=== PATIENT | male | born 1985 | race Caucasian/White ===

== ENCOUNTER 2018-02-02 21:43 | Emergency (ER) | payer MEDICAID ==
[~2018-02-02] VITALS: Ht 165.1 cm; Wt 59.0 kg
[2018-02-02 23:50] LABS: BASOPHILS % (AUTO) 0.5 % (0.0-2.0); EOSINOPHILS % (AUTO) 0 % (1.0-6.0); HEMATOCRIT 43.5 % (41-53); HEMOGLOBIN 14.7 g/dL (13.5-17.5); LYMPHOCYTES # (AUTO) 1.1 K/uL (1.0-4.8); LYMPHOCYTES % (AUTO) 9.4 % (22.0-44.0); MEAN CORPUSCULAR HEMOGLOBIN 29.6 pg (26.0-34.0); MEAN CORPUSCULAR HGB CONC 33.9 G/dL (31.0-37.0); MEAN CORPUSCULAR VOLUME 88 fL (80-100); MONOCYTES # (AUTO) 0.8 K/uL (0.1-1.0); MONOCYTES % (AUTO) 6.4 % (2.0-9.0); NEUTROPHILS % (AUTO) 83.7 % (40.0-70.0); PLATELET COUNT (AUTO) 224 K/uL (150-450); RED BLOOD CELL COUNT(AUTO) 4.97 MIL/uL (4.50-5.90); RED CELL DISTRIBUTION WIDTH 13.3 % (11.5-14.5)
[2018-02-03 00:03] LABS: ANION GAP 10 mmol/L (8-16); CALCIUM, TOTAL 9.3 mg/dL (8.8-10.5); CARBON DIOXIDE 25 mmol/L (22-29); CHLORIDE 99 mmol/L (98-107); CREATININE 0.96 mg/dL (0.60-1.30); GLOMERULAR FILTR. RATE CALC > 60 mL/min (>60); GLUCOSE,RANDOM 112 mg/dL (70-110); POTASSIUM 3.6 mmol/L (3.5-5.1); SODIUM SERUM 134 mmol/L (136-145); UREA NITROGEN, BLOOD 10 mg/dL (7-18)
[2018-02-03 00:09] LABS: ALANINE AMINOTRANSFERASE 20 U/L (12-78); ALBUMIN 4.6 g/dL (3.4-5.0); ALKALINE PHOSPHATASE 84 U/L (46-116); ASPARTATE AMINOTRANSFERASE 18 U/L (15-37); BILIRUBIN,TOTAL 0.7 mg/dL (0.1-1.0); TOTAL PROTEIN, SERUM 7.9 g/dL (6.4-8.2)
[2018-02-03 07:26] VITALS: BP 112/66
== END 2018-02-03 08:15 | disposition home or self-care (01) ==
LOC: EMS 21:45
DX: F29 Unspecified psychosis not due to a substance or known physiological condition (principal)
CPT/HCPCS: 80053; 85025; 99285; G0480

== ENCOUNTER 2018-02-11 07:56 | Inpatient (IN) | payer MEDICAID ==
[~2018-02-11] VITALS: Ht 165.1 cm; Wt 52.0 kg
[2018-02-11 08:30] LABS: BASOPHILS % (AUTO) 1.2 % (0.0-2.0); EOSINOPHILS % (AUTO) 1.3 % (1.0-6.0); HEMATOCRIT 41.5 % (41-53); HEMOGLOBIN 14.3 g/dL (13.5-17.5); LYMPHOCYTES # (AUTO) 1.3 K/uL (1.0-4.8); LYMPHOCYTES % (AUTO) 20.7 % (22.0-44.0); MEAN CORPUSCULAR HEMOGLOBIN 29.9 pg (26.0-34.0); MEAN CORPUSCULAR HGB CONC 34.3 G/dL (31.0-37.0); MEAN CORPUSCULAR VOLUME 87 fL (80-100); MONOCYTES # (AUTO) 0.5 K/uL (0.1-1.0); MONOCYTES % (AUTO) 8.6 % (2.0-9.0); NEUTROPHILS # (AUTO) 4.3 K/uL (1.8-7.7); NEUTROPHILS % (AUTO) 68.2 % (40.0-70.0); PLATELET COUNT (AUTO) 246 K/uL (150-450); RED BLOOD CELL COUNT(AUTO) 4.76 MIL/uL (4.50-5.90); RED CELL DISTRIBUTION WIDTH 12.9 % (11.5-14.5)
[2018-02-11 08:38] LABS: AMPHET/METH SCREEN,URINE NEGATIVE (NEGATIVE); BARBITURATE SCREEN, URINE NEGATIVE (NEGATIVE); BENZODIAZEPINES SCREEN,URINE NEGATIVE (NEGATIVE); CANNABINOID SCREEN,URINE POSITIVE (NEGATIVE); COCAINE SCREEN,URINE NEGATIVE (NEGATIVE); METHADONE SCREEN, URINE NEGATIVE (NEGATIVE); OPIATE SCREEN,URINE NEGATIVE (NEGATIVE); PHENCYCLIDINE SCREEN,URINE NEGATIVE (NEGATIVE)
[2018-02-11 08:40] LABS: ANION GAP 11 mmol/L (8-16); CALCIUM, TOTAL 8.9 mg/dL (8.8-10.5); CARBON DIOXIDE 26 mmol/L (22-29); CHLORIDE 101 mmol/L (98-107); CREATININE 0.83 mg/dL (0.60-1.30); GLOMERULAR FILTR. RATE CALC > 60 mL/min (>60); GLUCOSE,RANDOM 96 mg/dL (70-110); SODIUM SERUM 138 mmol/L (136-145); UREA NITROGEN, BLOOD 8 mg/dL (7-18)
[2018-02-11 08:46] LABS: ALANINE AMINOTRANSFERASE 29 U/L (12-78); ALBUMIN 4.1 g/dL (3.4-5.0); ALKALINE PHOSPHATASE 74 U/L (46-116); ASPARTATE AMINOTRANSFERASE 28 U/L (15-37); BILIRUBIN,TOTAL 0.5 mg/dL (0.1-1.0); TOTAL PROTEIN, SERUM 7.2 g/dL (6.4-8.2)
[2018-02-11] MEDS ORDERED: HALOPERIDOL 5 MG TABLET PO PRN (10:30)
[2018-02-11] MEDS ORDERED: ZOLPIDEM TARTRATE 10 MG TABLET PO PRN (10:30)
[2018-02-11 14:24] VITALS: BP 121/79
[2018-02-11] MEDS ORDERED: LOPERAMIDE HCL 2 MG CAPSULE PO PRN (14:30)
[2018-02-11] MEDS ORDERED: ACETAMINOPHEN 325 MG TABLET PO PRN (14:30)
[2018-02-11] MEDS ORDERED: IBUPROFEN 400 MG TABLET PO PRN (14:30)
[2018-02-11] MEDS ORDERED: DOCUSATE SODIUM 100 MG CAPSULE PO PRN (14:30)
[2018-02-11] MEDS ORDERED: ONDANSETRON HCL 4 MG TABLET PO PRN (14:30)
[2018-02-11] MEDS ORDERED: MAG HYDROX/AL HYDROX/SIMETH ES 30 ML SUSPENSION UDCUP PO PRN (14:30)
[2018-02-11] MEDS ORDERED: CloNIDine HCL 0.1 MG TABLET PO PRN (14:30)
[2018-02-11] MEDS ORDERED: ALBUTEROL SULFATE HFA 90 MCG/PUFF 8 GM INHALER IH PRN (14:30)
[2018-02-11] MEDS ORDERED: MAGNESIUM HYDROXIDE SUSPENSION 30 ML UDCUP PO PRN (14:30)
[2018-02-11] MEDS ORDERED: PETROLATUM,WHITE 71 GM JELLY TP PRN (14:30)
[2018-02-11 16:00] VITALS: BP 128/79
[2018-02-11] MEDS: BACITRACIN 28.4 GM OINTMENT TP SCH (17:00)
[2018-02-11] MEDS: OLANZapine 5 MG TABLET PO SCH (17:00)
[2018-02-12 00:07] VITALS: BP 118/80
[2018-02-12 07:38] VITALS: BP 116/78
[2018-02-12] MEDS: NICOTINE 14 MG/24 HOUR PATCH TD SCH (08:17)
[2018-02-12] MEDS: BACITRACIN 28.4 GM OINTMENT TP SCH ×2 (08:17→16:05)
[2018-02-12] MEDS: OLANZapine 5 MG TABLET PO SCH ×2 (08:17→16:05)
[2018-02-12 08:21] LABS: BASOPHILS % (AUTO) 0.7 % (0.0-2.0); EOSINOPHILS % (AUTO) 2.7 % (1.0-6.0); HEMATOCRIT 45.7 % (41-53); HEMOGLOBIN 15.6 g/dL (13.5-17.5); LYMPHOCYTES % (AUTO) 29.6 % (22.0-44.0); MEAN CORPUSCULAR HEMOGLOBIN 30.2 pg (26.0-34.0); MEAN CORPUSCULAR HGB CONC 34.1 G/dL (31.0-37.0); MEAN CORPUSCULAR VOLUME 89 fL (80-100); MONOCYTES # (AUTO) 0.7 K/uL (0.1-1.0); MONOCYTES % (AUTO) 9.9 % (2.0-9.0); NEUTROPHILS % (AUTO) 57.1 % (40.0-70.0); PLATELET COUNT (AUTO) 288 K/uL (150-450); RED BLOOD CELL COUNT(AUTO) 5.16 MIL/uL (4.50-5.90); RED CELL DISTRIBUTION WIDTH 13.3 % (11.5-14.5)
[2018-02-12 08:46] LABS: HEMOGLOBIN A1C 5.3 % (4.5-6.2)
[2018-02-12 08:52] LABS: ALANINE AMINOTRANSFERASE 24 U/L (12-78); ALBUMIN 4.3 g/dL (3.4-5.0); ALKALINE PHOSPHATASE 77 U/L (46-116); ANION GAP 14 mmol/L (8-16); ASPARTATE AMINOTRANSFERASE 18 U/L (15-37); BILIRUBIN,TOTAL 0.6 mg/dL (0.1-1.0); CALCIUM, TOTAL 9.1 mg/dL (8.8-10.5); CARBON DIOXIDE 23 mmol/L (22-29); CHLORIDE 105 mmol/L (98-107); CHOL/HDL RATIO 2.7 (4.2-7.3); CHOLESTEROL 110 mg/dL (131-200); CREATININE 1.04 mg/dL (0.60-1.30); GLOMERULAR FILTR. RATE CALC > 60 mL/min (>60); GLUCOSE,RANDOM 106 mg/dL (70-110); HDL CHOLESTEROL 41 mg/dL (40-60); LDL CHOL (CALC.) 56 mg/dL (0-130); POTASSIUM 3.3 mmol/L (3.5-5.1); SODIUM SERUM 142 mmol/L (136-145); THYROID STIMULATING HORMONE 1.67 uIU/mL (0.36-3.74); TOTAL PROTEIN, SERUM 7.6 g/dL (6.4-8.2); TRIGLYCERIDES 67 mg/dL (15-150); UREA NITROGEN, BLOOD 13 mg/dL (7-18)
[2018-02-12 16:18] VITALS: BP 117/77
[2018-02-13 02:51] VITALS: BP 128/85
[2018-02-13] MEDS ORDERED: POTASSIUM CHLORIDE 20 MEQ ER TABLET PO ONE (07:00)
[2018-02-13 08:33] VITALS: BP 118/78
[2018-02-13] MEDS: LORazepam 2 MG TABLET PO PRN (09:11)
[2018-02-13] MEDS: NICOTINE 14 MG/24 HOUR PATCH TD SCH (09:12)
[2018-02-13] MEDS: OLANZapine 5 MG TABLET PO SCH (09:12)
[2018-02-13] MEDS: BACITRACIN 28.4 GM OINTMENT TP SCH ×2 (09:14→16:33)
[2018-02-13 16:10] VITALS: BP 107/74
[2018-02-13] MEDS: OLANZapine 10 MG TABLET PO SCH (16:32)
[2018-02-14 00:21] VITALS: BP 132/82
[2018-02-14] MEDS: LORazepam 2 MG TABLET PO PRN ×2 (01:29→16:29)
[2018-02-14 08:04] VITALS: BP 123/78
[2018-02-14] MEDS: OLANZapine 10 MG TABLET PO SCH ×2 (08:18→16:29)
[2018-02-14] MEDS: BACITRACIN 28.4 GM OINTMENT TP SCH ×2 (08:18→17:03)
[2018-02-14] MEDS: NICOTINE 14 MG/24 HOUR PATCH TD SCH (08:18)
[2018-02-14] MEDS ORDERED: DIVALPROEX SODIUM 250 MG ER TABLET PO ONE (12:30)
[2018-02-14 16:05] VITALS: BP 128/82
[2018-02-14] MEDS: DIVALPROEX SODIUM 250 MG ER TABLET PO SCH (16:29)
[2018-02-15 03:40] VITALS: BP 118/73
[2018-02-15 08:10] VITALS: BP 116/70
[2018-02-15] MEDS: BACITRACIN 28.4 GM OINTMENT TP SCH ×2 (08:41→17:00)
[2018-02-15] MEDS: OLANZapine 10 MG TABLET PO SCH ×2 (08:41→17:00)
[2018-02-15] MEDS: DIVALPROEX SODIUM 250 MG ER TABLET PO SCH (08:41)
[2018-02-15] MEDS: NICOTINE 14 MG/24 HOUR PATCH TD SCH (08:41)
[2018-02-15] MEDS ORDERED: LORazepam 2 MG/ML VIAL ONE (13:50)
[2018-02-15] MEDS ORDERED: HALOPERIDOL LACTATE 5 MG/ML VIAL ONE (13:50)
[2018-02-15] MEDS ORDERED: DiphenhydrAMINE HCL 50 MG/ML VIAL ONE (13:50)
[2018-02-15] MEDS ORDERED: DiphenhydrAMINE HCL 50 MG/ML VIAL IM ONE (14:00)
[2018-02-15] MEDS ORDERED: HALOPERIDOL LACTATE 5 MG/ML VIAL IM ONE (14:00)
[2018-02-15] MEDS ORDERED: LORazepam 2 MG/ML VIAL IM ONE (14:00)
[2018-02-15 15:05] VITALS: BP 111/70
[2018-02-15 16:00] VITALS: BP 110/71
[2018-02-15] MEDS: DIVALPROEX SODIUM 500 MG ER TABLET PO SCH (17:00)
[2018-02-16 02:48] VITALS: BP 127/76
[2018-02-16 08:21] VITALS: BP 110/69
[2018-02-16] MEDS: DIVALPROEX SODIUM 500 MG ER TABLET PO SCH ×2 (10:01→16:05)
[2018-02-16] MEDS: BACITRACIN 28.4 GM OINTMENT TP SCH ×2 (10:01→16:05)
[2018-02-16] MEDS: OLANZapine 10 MG TABLET PO SCH ×2 (10:01→16:05)
[2018-02-16] MEDS: NICOTINE 14 MG/24 HOUR PATCH TD SCH (10:01)
[2018-02-16 18:13] VITALS: BP 121/74
[2018-02-16 21:18] VITALS: BP 109/67
[2018-02-17 06:27] VITALS: BP 110/68
[2018-02-17] MEDS: DIVALPROEX SODIUM 500 MG ER TABLET PO SCH (08:09)
[2018-02-17] MEDS: OLANZapine 10 MG TABLET PO SCH (08:09)
[2018-02-17] MEDS: BACITRACIN 28.4 GM OINTMENT TP SCH (08:10)
[2018-02-17] MEDS: NICOTINE 14 MG/24 HOUR PATCH TD SCH (08:10)
[2018-02-17 08:40] LABS: BASOPHILS % (AUTO) 0.6 % (0.0-2.0); EOSINOPHILS % (AUTO) 3.3 % (1.0-6.0); HEMATOCRIT 47.5 % (41-53); LYMPHOCYTES # (AUTO) 1.6 K/uL (1.0-4.8); LYMPHOCYTES % (AUTO) 23.5 % (22.0-44.0); MEAN CORPUSCULAR HGB CONC 33.8 G/dL (31.0-37.0); MEAN CORPUSCULAR VOLUME 89 fL (80-100); MONOCYTES # (AUTO) 0.8 K/uL (0.1-1.0); MONOCYTES % (AUTO) 11.2 % (2.0-9.0); NEUTROPHILS # (AUTO) 4.3 K/uL (1.8-7.7); NEUTROPHILS % (AUTO) 61.4 % (40.0-70.0); PLATELET COUNT (AUTO) 292 K/uL (150-450); RED BLOOD CELL COUNT(AUTO) 5.34 MIL/uL (4.50-5.90)
[2018-02-17 08:57] LABS: ALANINE AMINOTRANSFERASE 22 U/L (12-78); ALKALINE PHOSPHATASE 80 U/L (46-116); ANION GAP 10 mmol/L (8-16); ASPARTATE AMINOTRANSFERASE 32 U/L (15-37); BILIRUBIN,TOTAL 0.6 mg/dL (0.1-1.0); CALCIUM, TOTAL 9.3 mg/dL (8.8-10.5); CARBON DIOXIDE 27 mmol/L (22-29); CHLORIDE 102 mmol/L (98-107); CREATININE 0.83 mg/dL (0.60-1.30); GLOMERULAR FILTR. RATE CALC > 60 mL/min (>60); GLUCOSE,RANDOM 70 mg/dL (70-110); POTASSIUM 4.4 mmol/L (3.5-5.1); SODIUM SERUM 139 mmol/L (136-145); TOTAL PROTEIN, SERUM 7.4 g/dL (6.4-8.2); UREA NITROGEN, BLOOD 15 mg/dL (7-18); VALPROIC ACID 60 mcg/mL (50-100)
[2018-02-17 08:59] VITALS: BP 110/75
[2018-02-17] MEDS ORDERED: DIVA250T4 PO (09:36)
[2018-02-17] MEDS ORDERED: OLAN10TA3 PO (09:37)
== END 2018-02-17 12:40 | disposition home or self-care (01) | DRG 753 ==
LOC: EMS 07:56 → B3A 12:19 → B2S 02-16 08:09
PROVIDERS: ADMIT Psychiatry & Neurology Psychiatry; ATTEND Psychiatry & Neurology Psychiatry
DX: F31.2 Bipolar disorder, current episode manic severe with psychotic features (principal); Z91.19 Patient's noncompliance with other medical treatment and regimen; R62.7 Adult failure to thrive; E87.6 Hypokalemia; F10.10 Alcohol abuse, uncomplicated; F12.90 Cannabis use, unspecified, uncomplicated; F41.9 Anxiety disorder, unspecified
CPT/HCPCS: 83036; 84132; 84443; 99285; G0480; J1200; J1630; J2060; Q0162

== ENCOUNTER 2018-09-22 00:31 | Inpatient (IN) | payer MEDICAID ==
[~2018-09-22] VITALS: Ht 165.1 cm; Wt 54.0 kg
[~2018-09-22 00:31] MED LIST: DIVA250T4 PO; OLAN10TA3 PO
[2018-09-22] MEDS ORDERED: HALOPERIDOL LACTATE 5 MG/ML VIAL IM ONE (01:15)
[2018-09-22] MEDS ORDERED: LORazepam 2 MG/ML VIAL IM ONE (01:15)
[2018-09-22] MEDS ORDERED: DiphenhydrAMINE HCL 50 MG/ML VIAL IM ONE (01:15)
[2018-09-22 01:46] LABS: BASOPHILS % (AUTO) 0.6 % (0.0-2.0); EOSINOPHILS % (AUTO) 0 % (1.0-6.0); HEMATOCRIT 43.4 % (41-53); HEMOGLOBIN 14.3 g/dL (13.5-17.5); LYMPHOCYTES # (AUTO) 0.9 K/uL (1.0-4.8); LYMPHOCYTES % (AUTO) 7.9 % (22.0-44.0); MEAN CORPUSCULAR HEMOGLOBIN 28.5 pg (26.0-34.0); MEAN CORPUSCULAR VOLUME 86 fL (80-100); MONOCYTES # (AUTO) 0.9 K/uL (0.1-1.0); MONOCYTES % (AUTO) 7.7 % (2.0-9.0); NEUTROPHILS # (AUTO) 9.9 K/uL (1.8-7.7); NEUTROPHILS % (AUTO) 83.8 % (40.0-70.0); PLATELET COUNT (AUTO) 272 K/uL (150-450); RED BLOOD CELL COUNT(AUTO) 5.03 MIL/uL (4.50-5.90); RED CELL DISTRIBUTION WIDTH 13.3 % (11.5-14.5)
[2018-09-22 01:49] LABS: ANION GAP 12 mmol/L (8-16); CALCIUM, TOTAL 9.6 mg/dL (8.8-10.5); CARBON DIOXIDE 25 mmol/L (22-29); CHLORIDE 103 mmol/L (98-107); GLOMERULAR FILTR. RATE CALC > 60 mL/min (>60); GLUCOSE,RANDOM 107 mg/dL (70-110); POTASSIUM 4.1 mmol/L (3.5-5.1); SODIUM SERUM 140 mmol/L (136-145); UREA NITROGEN, BLOOD 14 mg/dL (7-18)
[2018-09-22 01:54] LABS: ALANINE AMINOTRANSFERASE 19 U/L (12-78); ALBUMIN 4.1 g/dL (3.4-5.0); ALKALINE PHOSPHATASE 81 U/L (46-116); ASPARTATE AMINOTRANSFERASE 23 U/L (15-37); BILIRUBIN,TOTAL 0.6 mg/dL (0.1-1.0); TOTAL PROTEIN, SERUM 7.6 g/dL (6.4-8.2)
[2018-09-22 02:09] LABS: VALPROIC ACID < 3 mcg/mL (50-100)
[2018-09-22 16:27] VITALS: BP 111/66
[2018-09-22] MEDS: ZOLPIDEM TARTRATE 10 MG TABLET PO PRN (22:07)
[2018-09-23 01:59] VITALS: BP 124/78
[2018-09-23] MEDS: HALOPERIDOL 5 MG TABLET PO PRN (03:00)
[2018-09-23] MEDS: LORazepam 2 MG TABLET PO PRN (03:00)
[2018-09-23] MEDS ORDERED: CloNIDine HCL 0.1 MG TABLET PO PRN (07:15)
[2018-09-23] MEDS ORDERED: IBUPROFEN 600 MG TABLET PO PRN (07:15)
[2018-09-23] MEDS ORDERED: LOPERAMIDE HCL 2 MG CAPSULE PO PRN (07:15)
[2018-09-23] MEDS ORDERED: MAGNESIUM HYDROXIDE SUSPENSION 30 ML UDCUP PO PRN (07:15)
[2018-09-23] MEDS ORDERED: MAG HYDROX/AL HYDROX/SIMETH ES 30 ML SUSPENSION UDCUP PO PRN (07:15)
[2018-09-23] MEDS ORDERED: PETROLATUM,WHITE 71 GM JELLY TP PRN (07:15)
[2018-09-23] MEDS ORDERED: ALBUTEROL SULFATE HFA 90 MCG/PUFF 8 GM INHALER IH PRN (07:15)
[2018-09-23] MEDS ORDERED: BENZOCAINE/MENTHOL LOZENGE MM PRN (07:15)
[2018-09-23] MEDS ORDERED: ACETAMINOPHEN 325 MG TABLET PO PRN (07:15)
[2018-09-23] MEDS ORDERED: ONDANSETRON HCL 4 MG TABLET PO PRN (07:15)
[2018-09-23] MEDS ORDERED: BACITRACIN 28.4 GM OINTMENT TP PRN (07:15)
[2018-09-23 08:42] VITALS: BP 120/70
[2018-09-23] MEDS: DOCUSATE SODIUM 100 MG CAPSULE PO SCH (09:08)
[2018-09-23] MEDS: OMEPRAZOLE 20 MG CAPSULE PO SCH (09:08)
[2018-09-23] MEDS: DIVALPROEX SODIUM 500 MG DR TABLET PO SCH ×2 (09:50→21:01)
[2018-09-23] MEDS: OLANZapine 10 MG TABLET PO SCH ×2 (09:50→21:01)
[2018-09-23 16:09] VITALS: BP 107/65
[2018-09-23] MEDS: ZOLPIDEM TARTRATE 10 MG TABLET PO PRN (21:01)
[2018-09-24 01:45] VITALS: BP 124/74
[2018-09-24 08:16] VITALS: BP 101/63
[2018-09-24 08:32] LABS: BAND NEUTROPHILS % (MANUAL) 0 % (0-5)
[2018-09-24 08:38] LABS: HEMATOCRIT 43.4 % (41-53); HEMOGLOBIN 14.5 g/dL (13.5-17.5); MEAN CORPUSCULAR HEMOGLOBIN 29.5 pg (26.0-34.0); MEAN CORPUSCULAR HGB CONC 33.5 G/dL (31.0-37.0); MEAN CORPUSCULAR VOLUME 88 fL (80-100); PLATELET COUNT (AUTO) 250 K/uL (150-450); RED BLOOD CELL COUNT(AUTO) 4.92 MIL/uL (4.50-5.90); RED CELL DISTRIBUTION WIDTH 12.9 % (11.5-14.5)
[2018-09-24] MEDS: OLANZapine 10 MG TABLET PO SCH ×2 (08:54→20:20)
[2018-09-24] MEDS: DOCUSATE SODIUM 100 MG CAPSULE PO SCH (08:54)
[2018-09-24] MEDS: DIVALPROEX SODIUM 500 MG DR TABLET PO SCH ×2 (08:54→20:20)
[2018-09-24] MEDS: OMEPRAZOLE 20 MG CAPSULE PO SCH (08:54)
[2018-09-24 08:56] LABS: ANION GAP 7 mmol/L (8-16); CARBON DIOXIDE 28 mmol/L (22-29); CHLORIDE 104 mmol/L (98-107); CREATININE 0.74 mg/dL (0.60-1.30); GLOMERULAR FILTR. RATE CALC > 60 mL/min (>60); GLUCOSE,RANDOM 75 mg/dL (70-110); PHOSPHORUS 3.7 mg/dL (2.5-4.9); SODIUM SERUM 139 mmol/L (136-145); UREA NITROGEN, BLOOD 12 mg/dL (7-18)
[2018-09-24 09:36] LABS: BASOPHILS % (MANUAL) 1 % (0-2); EOSINOPHILS % (MANUAL) 4 % (1-6); LYMPHOCYTES % (MANUAL) 36 % (22-44); MONOCYTES % (MANUAL) 7 % (2-9); SEGMENTED NEUTROPHILS % 52 % (40-70)
[2018-09-24 16:20] VITALS: BP 110/78
[2018-09-24] MEDS: LORazepam 2 MG TABLET PO PRN (16:22)
[2018-09-24] MEDS: HALOPERIDOL 5 MG TABLET PO PRN (16:22)
[2018-09-24] MEDS: ZOLPIDEM TARTRATE 10 MG TABLET PO PRN (20:20)
[2018-09-25 05:44] VITALS: BP 128/76
[2018-09-25 08:14] VITALS: BP 107/63
[2018-09-25] MEDS: OLANZapine 10 MG TABLET PO SCH ×2 (08:46→21:03)
[2018-09-25] MEDS: DOCUSATE SODIUM 100 MG CAPSULE PO SCH (08:46)
[2018-09-25] MEDS: OMEPRAZOLE 20 MG CAPSULE PO SCH (08:46)
[2018-09-25] MEDS: DIVALPROEX SODIUM 500 MG DR TABLET PO SCH ×2 (08:46→21:03)
[2018-09-25 16:13] VITALS: BP 126/62
[2018-09-25] MEDS: HALOPERIDOL 5 MG TABLET PO PRN (16:34)
[2018-09-25] MEDS: LORazepam 2 MG TABLET PO PRN (16:34)
[2018-09-25] MEDS: ZOLPIDEM TARTRATE 10 MG TABLET PO PRN (21:03)
[2018-09-26 04:20] VITALS: BP 111/66
[2018-09-26] MEDS: OMEPRAZOLE 20 MG CAPSULE PO SCH (08:57)
[2018-09-26] MEDS: DIVALPROEX SODIUM 500 MG DR TABLET PO SCH ×2 (08:57→20:33)
[2018-09-26] MEDS: OLANZapine 10 MG TABLET PO SCH ×2 (08:57→20:33)
[2018-09-26] MEDS: DOCUSATE SODIUM 100 MG CAPSULE PO SCH (08:57)
[2018-09-26 09:10] VITALS: BP 113/75
[2018-09-26 16:13] VITALS: BP 108/67
[2018-09-26] MEDS: ZOLPIDEM TARTRATE 10 MG TABLET PO PRN (20:33)
[2018-09-27] MEDS: LORazepam 2 MG TABLET PO PRN (01:51)
[2018-09-27 01:57] VITALS: BP 119/75
[2018-09-27 08:09] VITALS: BP 111/66
[2018-09-27] MEDS: OLANZapine 10 MG TABLET PO SCH ×2 (09:03→20:40)
[2018-09-27] MEDS: DOCUSATE SODIUM 100 MG CAPSULE PO SCH (09:03)
[2018-09-27] MEDS: DIVALPROEX SODIUM 500 MG DR TABLET PO SCH ×2 (09:03→20:40)
[2018-09-27] MEDS: OMEPRAZOLE 20 MG CAPSULE PO SCH (09:03)
[2018-09-27 16:00] VITALS: BP 105/71
[2018-09-27] MEDS: ZOLPIDEM TARTRATE 10 MG TABLET PO PRN (20:40)
[2018-09-28 00:48] VITALS: BP 118/66
[2018-09-28 08:34] VITALS: BP 117/69
[2018-09-28] MEDS: LORazepam 2 MG TABLET PO PRN (08:42)
[2018-09-28] MEDS: OLANZapine 10 MG TABLET PO SCH (08:42)
[2018-09-28] MEDS: DOCUSATE SODIUM 100 MG CAPSULE PO SCH (08:42)
[2018-09-28] MEDS: DIVALPROEX SODIUM 500 MG DR TABLET PO SCH (08:42)
[2018-09-28] MEDS: OMEPRAZOLE 20 MG CAPSULE PO SCH (08:42)
[2018-09-28] MEDS ORDERED: DIVA-78 PO (13:41)
[2018-09-28] MEDS ORDERED: OLAN10TA3 PO (13:42)
== END 2018-09-28 13:20 | disposition home or self-care (01) | DRG 750 ==
LOC: EMS 00:32 → B3A 12:56
PROVIDERS: ADMIT Psychiatry & Neurology Psychiatry; ATTEND Psychiatry & Neurology Psychiatry
DX: F25.0 Schizoaffective disorder, bipolar type (principal); D72.829 Elevated white blood cell count, unspecified; F12.90 Cannabis use, unspecified, uncomplicated; G47.00 Insomnia, unspecified; K59.00 Constipation, unspecified; Z79.899 Other long term (current) drug therapy; Z68.1 Body mass index [BMI] 19.9 or less, adult
CPT/HCPCS: 83735; 84100; 85007; 96372; G0480; J1200; J1630; J2060

== ENCOUNTER 2019-04-17 10:59 | Emergency (ER) | payer MEDICAID ==
[~2019-04-17] VITALS: Ht 167.6 cm; Wt 59.1 kg
[~2019-04-17 10:59] MED LIST changes: +DIVA-78 PO; -DIVA250T4 PO
[2019-04-17 12:05] LABS: ANION GAP 15 mmol/L (8-16); CALCIUM, TOTAL 9.5 mg/dL (8.8-10.5); CARBON DIOXIDE 25 mmol/L (22-29); CHLORIDE 102 mmol/L (98-107); CREATININE 1.29 mg/dL (0.60-1.30); GLOMERULAR FILTR. RATE CALC > 60 mL/min (>60); GLUCOSE,RANDOM 88 mg/dL (70-110); POTASSIUM 3.9 mmol/L (3.5-5.1); SODIUM SERUM 142 mmol/L (136-145); UREA NITROGEN, BLOOD 21 mg/dL (7-18)
[2019-04-17 13:21] VITALS: BP 115/75
== END 2019-04-17 13:22 | disposition home or self-care (01) ==
LOC: EMS 11:01
DX: G40.909 Epilepsy, unspecified, not intractable, without status epilepticus (principal); F12.90 Cannabis use, unspecified, uncomplicated; F14.90 Cocaine use, unspecified, uncomplicated; F15.90 Other stimulant use, unspecified, uncomplicated; Z79.899 Other long term (current) drug therapy
CPT/HCPCS: 70450

== ENCOUNTER 2019-04-17 15:51 | Inpatient (IN) | payer MEDICAID ==
[~2019-04-17] VITALS: Ht 167.6 cm; Wt 53.0 kg
[2019-04-17 18:24] LABS: BASOPHILS % (AUTO) 0.4 % (0.0-2.0); EOSINOPHILS % (AUTO) 0 % (1.0-6.0); HEMATOCRIT 45.4 % (41-53); HEMOGLOBIN 15.3 g/dL (13.5-17.5); LYMPHOCYTES # (AUTO) 0.6 K/uL (1.0-4.8); LYMPHOCYTES % (AUTO) 3.2 % (22.0-44.0); MEAN CORPUSCULAR HEMOGLOBIN 29.7 pg (26.0-34.0); MEAN CORPUSCULAR HGB CONC 33.6 G/dL (31.0-37.0); MEAN CORPUSCULAR VOLUME 88 fL (80-100); MONOCYTES # (AUTO) 1.1 K/uL (0.1-1.0); MONOCYTES % (AUTO) 6.2 % (2.0-9.0); NEUTROPHILS # (AUTO) 16.3 K/uL (1.8-7.7); PLATELET COUNT (AUTO) 234 K/uL (150-450); RED BLOOD CELL COUNT(AUTO) 5.14 MIL/uL (4.50-5.90)
[2019-04-17 18:31] LABS: NEUTROPHILS % (AUTO) 90.2 % (40.0-70.0)
[2019-04-17 18:32] LABS: ANION GAP 15 mmol/L (8-16); CARBON DIOXIDE 24 mmol/L (22-29); CHLORIDE 98 mmol/L (98-107); GLUCOSE,RANDOM 91 mg/dL (70-110); POTASSIUM 3.8 mmol/L (3.5-5.1); SALICYLATE < 2.8 mg/dL (2.8-20.0); SODIUM SERUM 137 mmol/L (136-145); UREA NITROGEN, BLOOD 22 mg/dL (7-18)
[2019-04-17 18:33] LABS: GLOMERULAR FILTR. RATE CALC > 60 mL/min (>60)
[2019-04-17 18:39] LABS: ALANINE AMINOTRANSFERASE 34 U/L (12-78); ALBUMIN 4.7 g/dL (3.4-5.0); ALKALINE PHOSPHATASE 69 U/L (46-116); ASPARTATE AMINOTRANSFERASE 106 U/L (15-37); BILIRUBIN,TOTAL 1.6 mg/dL (0.1-1.0); TOTAL PROTEIN, SERUM 8.2 g/dL (6.4-8.2)
[2019-04-17] MEDS ORDERED: SODIUM CHLORIDE 0.9% 1,000 ML IV ONE (18:45)
[2019-04-17 18:59] LABS: ACETAMINOPHEN < 2 mcg/mL (10-30)
[2019-04-17 20:17] LABS: BASOPHILS % (AUTO) 0.2 % (0.0-2.0); EOSINOPHILS % (AUTO) 0 % (1.0-6.0); HEMATOCRIT 40.8 % (41-53); HEMOGLOBIN 13.5 g/dL (13.5-17.5); LYMPHOCYTES # (AUTO) 0.7 K/uL (1.0-4.8); LYMPHOCYTES % (AUTO) 4.5 % (22.0-44.0); MEAN CORPUSCULAR HEMOGLOBIN 29.1 pg (26.0-34.0); MEAN CORPUSCULAR HGB CONC 33.1 G/dL (31.0-37.0); MEAN CORPUSCULAR VOLUME 88 fL (80-100); MONOCYTES # (AUTO) 1.1 K/uL (0.1-1.0); MONOCYTES % (AUTO) 7.2 % (2.0-9.0); NEUTROPHILS % (AUTO) 88.1 % (40.0-70.0); PLATELET COUNT (AUTO) 183 K/uL (150-450); RED BLOOD CELL COUNT(AUTO) 4.63 MIL/uL (4.50-5.90)
[2019-04-17 22:24] LABS: APPEARANCE,URINE CLEAR (CLEAR); GLUCOSE, URINE (UA) NEGATIVE (NEGATIVE); KETONES,URINE 15 mg/dL (NEGATIVE); LEUKOCYTE ESTERASE ,URINE NEGATIVE (NEGATIVE); NITRATE,URINE NEGATIVE (NEGATIVE); OCCULT BLOOD,URINE TRACE (NEGATIVE); PH,URINE 5.5 (5.0-8.0); PROTEIN,URINE POS 1+ (NEGATIVE); UROBILINOGEN,URINE 0.2 mg/dL (<=1.0)
[2019-04-17 22:25] LABS: BILIRUBIN,URINE PRELIM. POSITIVE (NEGATIVE)
[2019-04-17 22:31] LABS: AMPHET/METH SCREEN,URINE NEGATIVE (NEGATIVE); BARBITURATE SCREEN, URINE NEGATIVE (NEGATIVE); BENZODIAZEPINES SCREEN,URINE POSITIVE (NEGATIVE); CANNABINOID SCREEN,URINE POSITIVE (NEGATIVE); COCAINE SCREEN,URINE NEGATIVE (NEGATIVE); METHADONE SCREEN, URINE NEGATIVE (NEGATIVE); OPIATE SCREEN,URINE NEGATIVE (NEGATIVE)
[2019-04-17 22:32] LABS: PHENCYCLIDINE SCREEN,URINE NEGATIVE (NEGATIVE)
[2019-04-17 22:34] LABS: BACTERIA,URINE None Seen /HPF (None Seen); RBC,URINE 0-2 /HPF (0-2); SQUAMOUS EPITHELIAL CELL,UR Rare /LPF (None Seen); WBC,URINE 0-2 /HPF (0-5)
[2019-04-17] MEDS ORDERED: ZOLPIDEM TARTRATE 10 MG TABLET PO PRN (23:15)
[2019-04-18 01:36] VITALS: BP 112/60
[2019-04-18] MEDS: OLANZapine 5 MG RAPDIS TABLET PO PRN (02:52)
[2019-04-18] MEDS: LORazepam 2 MG TABLET PO PRN (02:52)
[2019-04-18] MEDS ORDERED: INFLUENZA VIRUS VACCINE QVS 2019-20 (3YR+)/PF 60 MCG/0.5 ML SYRINGE IM ONE (03:45)
[2019-04-18] MEDS ORDERED: DiphenhydrAMINE HCL 50 MG/ML VIAL IM ONE ×2 (09:05→21:45)
[2019-04-18] MEDS ORDERED: LORazepam 2 MG/ML VIAL IM ONE ×2 (09:05→21:45)
[2019-04-18] MEDS ORDERED: HALOPERIDOL LACTATE 5 MG/ML VIAL IM ONE ×2 (09:05→21:45)
[2019-04-18] MEDS ORDERED: GuaiFENesin/D-METHORPHAN [SUGAR-FREE] 200-20MG/10 ML SYRUP UDCUP PO PRN (12:15)
[2019-04-18] MEDS ORDERED: MAGNESIUM HYDROXIDE SUSPENSION 30 ML UDCUP PO PRN (12:15)
[2019-04-18] MEDS ORDERED: ACETAMINOPHEN 325 MG TABLET PO PRN (12:15)
[2019-04-18] MEDS ORDERED: HydrOXYzine PAMOATE 50 MG CAPSULE PO PRN (12:15)
[2019-04-18] MEDS ORDERED: PROMETHAZINE HCL 25 MG TABLET PO PRN (12:15)
[2019-04-18] MEDS ORDERED: MAG HYDROX/AL HYDROX/SIMETH ES 30 ML SUSPENSION UDCUP PO PRN (12:15)
[2019-04-18] MEDS ORDERED: TUBERCULIN, PURIFIED PROTEIN DERIVATIVE 5 TU/0.1 ML SYRINGE ID ONE (12:15)
[2019-04-18] MEDS ORDERED: LOPERAMIDE HCL 2 MG CAPSULE PO PRN (12:15)
[2019-04-18] MEDS: THIAMINE HCL 100 MG TABLET PO SCH (16:55)
[2019-04-18] MEDS ORDERED: IBUPROFEN 600 MG TABLET PO PRN (19:15)
[2019-04-18] MEDS ORDERED: CloNIDine HCL 0.1 MG TABLET PO PRN (19:15)
[2019-04-18] MEDS ORDERED: ONDANSETRON HCL 4 MG TABLET PO PRN (19:15)
[2019-04-18] MEDS ORDERED: BENZOCAINE/MENTHOL LOZENGE MM PRN (19:15)
[2019-04-18] MEDS ORDERED: ALBUTEROL SULFATE HFA 90 MCG/PUFF 8 GM INHALER IH PRN (19:15)
[2019-04-18] MEDS ORDERED: PETROLATUM,WHITE 28 GM JELLY TP PRN (19:15)
[2019-04-18] MEDS ORDERED: BACITRACIN 28.4 GM OINTMENT TP PRN (19:15)
[2019-04-18] MEDS: DIVALPROEX SODIUM 500 MG ER TABLET PO SCH (20:24)
[2019-04-18] MEDS ORDERED: OLANZapine 5 MG TABLET PO SCH (21:00)
[2019-04-18] MEDS ORDERED: LORazepam 2 MG/ML VIAL ONE (21:41)
[2019-04-18 23:22] VITALS: BP 120/73
[2019-04-19] MEDS: MULTIVITAMINS WITH MINERALS, THERAPEUTIC TABLET PO SCH (07:58)
[2019-04-19] MEDS: THIAMINE HCL 100 MG TABLET PO SCH ×2 (07:58→18:00)
[2019-04-19] MEDS: LORazepam 2 MG TABLET PO PRN ×2 (07:58→17:00)
[2019-04-19] MEDS: NALTREXONE HCL 50 MG TABLET PO SCH (07:58)
[2019-04-19] MEDS: FOLIC ACID 1 MG TABLET PO SCH (07:58)
[2019-04-19] MEDS: OLANZapine 5 MG RAPDIS TABLET PO PRN (08:01)
[2019-04-19 08:40] VITALS: BP 107/66
[2019-04-19 20:04] VITALS: BP 111/68
[2019-04-19] MEDS: DIVALPROEX SODIUM 500 MG ER TABLET PO SCH (20:49)
[2019-04-19] MEDS ORDERED: OLANZapine 10 MG TABLET PO SCH (21:00)
[2019-04-20 06:26] LABS: HEMOGLOBIN A1C 5.1 % (4.5-6.2)
[2019-04-20 06:38] LABS: ANION GAP 7 mmol/L (8-16); CALCIUM, TOTAL 8.9 mg/dL (8.8-10.5); CARBON DIOXIDE 31 mmol/L (22-29); CHLORIDE 101 mmol/L (98-107); CHOL/HDL RATIO 2.9 (4.2-7.3); CHOLESTEROL 112 mg/dL (131-200); CREATININE 0.84 mg/dL (0.60-1.30); FREE T4 (FREE THYROXINE) 1.83 ng/dL (0.76-1.46); GLOMERULAR FILTR. RATE CALC > 60 mL/min (>60); GLUCOSE,RANDOM 86 mg/dL (70-110); HDL CHOLESTEROL 38 mg/dL (40-60); LDL CHOL (CALC.) 60 mg/dL (0-130); PHOSPHORUS 3.9 mg/dL (2.5-4.9); POTASSIUM 3.9 mmol/L (3.5-5.1); SODIUM SERUM 139 mmol/L (136-145); THYROID STIMULATING HORMONE 2.26 uIU/mL (0.36-3.74); TRIGLYCERIDES 71 mg/dL (15-150); UREA NITROGEN, BLOOD 8 mg/dL (7-18); VALPROIC ACID 73 mcg/mL (50-100)
[2019-04-20 08:10] VITALS: BP 116/80
[2019-04-20] MEDS: NALTREXONE HCL 50 MG TABLET PO SCH (10:00)
[2019-04-20] MEDS: THIAMINE HCL 100 MG TABLET PO SCH ×2 (10:00→16:21)
[2019-04-20] MEDS: FOLIC ACID 1 MG TABLET PO SCH (10:00)
[2019-04-20] MEDS: MULTIVITAMINS WITH MINERALS, THERAPEUTIC TABLET PO SCH (10:00)
[2019-04-20 16:55] VITALS: BP 105/69
[2019-04-20] MEDS ORDERED: DIVA500T52 PO (17:41)
[2019-04-20] MEDS ORDERED: NALT50TA PO (17:41)
[2019-04-20] MEDS ORDERED: OLAN10TA20 PO (17:41)
== END 2019-04-20 19:00 | disposition home or self-care (01) | DRG 750 ==
LOC: EMS 15:52 → 3EC 04-18 00:13
PROVIDERS: ADMIT Psychiatry & Neurology Psychiatry; ATTEND Psychiatry & Neurology Psychiatry
DX: F25.0 Schizoaffective disorder, bipolar type (principal); Z78.1 Physical restraint status; Z59.0 Homelessness; D72.829 Elevated white blood cell count, unspecified; F12.90 Cannabis use, unspecified, uncomplicated; F14.90 Cocaine use, unspecified, uncomplicated; F17.210 Nicotine dependence, cigarettes, uncomplicated; G47.00 Insomnia, unspecified; K59.00 Constipation, unspecified; Z91.19 Patient's noncompliance with other medical treatment and regimen; Z53.20 Procedure and treatment not carried out because of patient's decision for unspecified reasons
CPT/HCPCS: 83036; 83735; 84100; 84439; 84443; 96372; G0480; G0481; J1200; J1630; J2060; J7030

== ENCOUNTER 2019-04-25 12:01 | Inpatient (IN) | payer MEDICAID ==
[~2019-04-25] VITALS: Ht 167.6 cm; Wt 52.6 kg
[~2019-04-25 12:01] MED LIST changes: -DIVA-78 PO; +DIVA500T52 PO; +NALT50TA PO; +OLAN10TA20 PO; -OLAN10TA3 PO
[2019-04-25 12:35] LABS: BASOPHILS % (AUTO) 0.5 % (0.0-2.0); EOSINOPHILS % (AUTO) 0.1 % (1.0-6.0); HEMATOCRIT 44.4 % (41-53); HEMOGLOBIN 15.1 g/dL (13.5-17.5); LYMPHOCYTES # (AUTO) 1.1 K/uL (1.0-4.8); LYMPHOCYTES % (AUTO) 11.2 % (22.0-44.0); MEAN CORPUSCULAR HEMOGLOBIN 29.6 pg (26.0-34.0); MEAN CORPUSCULAR HGB CONC 33.9 G/dL (31.0-37.0); MEAN CORPUSCULAR VOLUME 87 fL (80-100); MONOCYTES # (AUTO) 1.1 K/uL (0.1-1.0); MONOCYTES % (AUTO) 10.9 % (2.0-9.0); NEUTROPHILS # (AUTO) 7.6 K/uL (1.8-7.7); NEUTROPHILS % (AUTO) 77.3 % (40.0-70.0); PLATELET COUNT (AUTO) 274 K/uL (150-450); RED BLOOD CELL COUNT(AUTO) 5.09 MIL/uL (4.50-5.90); RED CELL DISTRIBUTION WIDTH 12.8 % (11.5-14.5)
[2019-04-25] MEDS ORDERED: HALOPERIDOL LACTATE 5 MG/ML VIAL IM ONE (12:45)
[2019-04-25] MEDS ORDERED: MAG HYDROX/AL HYDROX/SIMETH ES 30 ML SUSPENSION UDCUP PO PRN (12:45)
[2019-04-25] MEDS ORDERED: LORazepam 2 MG/ML VIAL IM ONE (12:45)
[2019-04-25] MEDS ORDERED: DiphenhydrAMINE HCL 50 MG/ML VIAL IM ONE (12:45)
[2019-04-25] MEDS ORDERED: GuaiFENesin/D-METHORPHAN [SUGAR-FREE] 200-20MG/10 ML SYRUP UDCUP PO PRN (12:45)
[2019-04-25] MEDS ORDERED: ACETAMINOPHEN 325 MG TABLET PO PRN (12:45)
[2019-04-25] MEDS ORDERED: PROMETHAZINE HCL 25 MG TABLET PO PRN (12:45)
[2019-04-25] MEDS ORDERED: HydrOXYzine PAMOATE 50 MG CAPSULE PO PRN (12:45)
[2019-04-25] MEDS ORDERED: MAGNESIUM HYDROXIDE SUSPENSION 30 ML UDCUP PO PRN (12:45)
[2019-04-25] MEDS ORDERED: LOPERAMIDE HCL 2 MG CAPSULE PO PRN (12:45)
[2019-04-25 12:46] LABS: ANION GAP 11 mmol/L (8-16); CALCIUM, TOTAL 8.9 mg/dL (8.8-10.5); CARBON DIOXIDE 27 mmol/L (22-29); CHLORIDE 102 mmol/L (98-107); CREATININE 0.99 mg/dL (0.60-1.30); GLOMERULAR FILTR. RATE CALC > 60 mL/min (>60); GLUCOSE,RANDOM 87 mg/dL (70-110); POTASSIUM 3.3 mmol/L (3.5-5.1); SODIUM SERUM 140 mmol/L (136-145); UREA NITROGEN, BLOOD 13 mg/dL (7-18)
[2019-04-25 12:53] LABS: ALANINE AMINOTRANSFERASE 27 U/L (12-78); ALBUMIN 3.9 g/dL (3.4-5.0); ALKALINE PHOSPHATASE 61 U/L (46-116); ASPARTATE AMINOTRANSFERASE 27 U/L (15-37); BILIRUBIN,TOTAL 0.6 mg/dL (0.1-1.0); TOTAL PROTEIN, SERUM 7.4 g/dL (6.4-8.2)
[2019-04-25] MEDS ORDERED: PALIPERIDONE PALMITATE 234 MG/1.5 ML SYRINGE IM ONE (17:00)
[2019-04-25 17:17] VITALS: BP 137/83
[2019-04-25] MEDS: THIAMINE HCL 100 MG TABLET PO SCH (19:43)
[2019-04-25 20:54] VITALS: BP 127/87
[2019-04-25] MEDS ORDERED: INFLUENZA VIRUS VACCINE QVS 2019-20 (3YR+)/PF 60 MCG/0.5 ML SYRINGE IM ONE (21:15)
[2019-04-25] MEDS: PALIPERIDONE 3 MG ER TABLET PO SCH (22:46)
[2019-04-26] MEDS: ZOLPIDEM TARTRATE 10 MG TABLET PO PRN (00:11)
[2019-04-26] MEDS: LORazepam 2 MG TABLET PO PRN ×2 (00:11→20:05)
[2019-04-26 08:10] VITALS: BP 114/80
[2019-04-26] MEDS: MULTIVITAMINS WITH MINERALS, THERAPEUTIC TABLET PO SCH (08:32)
[2019-04-26] MEDS: FOLIC ACID 1 MG TABLET PO SCH (08:32)
[2019-04-26] MEDS: THIAMINE HCL 100 MG TABLET PO SCH ×2 (08:32→16:14)
[2019-04-26] MEDS: NALTREXONE HCL 50 MG TABLET PO SCH (08:32)
[2019-04-26 09:42] VITALS: BP 103/54
[2019-04-26] MEDS ORDERED: POTASSIUM CHLORIDE 20 MEQ ER TABLET PO ONE (10:15)
[2019-04-26 11:12] LABS: APPEARANCE,URINE CLEAR (CLEAR); GLUCOSE, URINE (UA) NEGATIVE (NEGATIVE); KETONES,URINE TRACE mg/dL (NEGATIVE); LEUKOCYTE ESTERASE ,URINE NEGATIVE (NEGATIVE); NITRATE,URINE NEGATIVE (NEGATIVE); OCCULT BLOOD,URINE NEGATIVE (NEGATIVE); PH,URINE 5.5 (5.0-8.0); PROTEIN,URINE TRACE (NEGATIVE)
[2019-04-26 11:14] LABS: BILIRUBIN,URINE PRELIM. POSITIVE (NEGATIVE)
[2019-04-26 11:21] LABS: AMPHET/METH SCREEN,URINE NEGATIVE (NEGATIVE); BARBITURATE SCREEN, URINE NEGATIVE (NEGATIVE); BENZODIAZEPINES SCREEN,URINE NEGATIVE (NEGATIVE); CANNABINOID SCREEN,URINE POSITIVE (NEGATIVE); COCAINE SCREEN,URINE NEGATIVE (NEGATIVE); METHADONE SCREEN, URINE NEGATIVE (NEGATIVE); OPIATE SCREEN,URINE NEGATIVE (NEGATIVE); PHENCYCLIDINE SCREEN,URINE NEGATIVE (NEGATIVE)
[2019-04-26 11:25] LABS: BACTERIA,URINE None Seen /HPF (None Seen); MUCUS,URINE Few LPF (None Seen); RBC,URINE None Seen /HPF (0-2); SQUAMOUS EPITHELIAL CELL,UR Few /LPF (None Seen); WBC,URINE 0-2 /HPF (0-5)
[2019-04-26] MEDS: PALIPERIDONE 1.5 MG ER TABLET PO PRN (16:14)
[2019-04-26 18:44] VITALS: BP 113/72
[2019-04-26] MEDS: PALIPERIDONE 3 MG ER TABLET PO SCH (20:04)
[2019-04-27] MEDS: ZOLPIDEM TARTRATE 10 MG TABLET PO PRN ×2 (02:13→23:32)
[2019-04-27 02:15] VITALS: BP 107/62
[2019-04-27] MEDS: LORazepam 2 MG TABLET PO PRN (07:52)
[2019-04-27] MEDS: PALIPERIDONE 1.5 MG ER TABLET PO PRN (07:52)
[2019-04-27] MEDS: THIAMINE HCL 100 MG TABLET PO SCH ×2 (08:11→17:06)
[2019-04-27] MEDS: MULTIVITAMINS WITH MINERALS, THERAPEUTIC TABLET PO SCH (08:11)
[2019-04-27] MEDS: NALTREXONE HCL 50 MG TABLET PO SCH (08:11)
[2019-04-27] MEDS: FOLIC ACID 1 MG TABLET PO SCH (08:11)
[2019-04-27 08:25] VITALS: BP 115/83
[2019-04-27 16:57] VITALS: BP 127/75
[2019-04-27] MEDS: PALIPERIDONE 3 MG ER TABLET PO SCH (20:14)
[2019-04-28] VITALS: BP 132/90
[2019-04-28] MEDS: LORazepam 2 MG TABLET PO PRN (03:51)
[2019-04-28] MEDS: NALTREXONE HCL 50 MG TABLET PO SCH (07:56)
[2019-04-28] MEDS: FOLIC ACID 1 MG TABLET PO SCH (07:56)
[2019-04-28] MEDS: THIAMINE HCL 100 MG TABLET PO SCH ×2 (07:56→16:20)
[2019-04-28] MEDS: MULTIVITAMINS WITH MINERALS, THERAPEUTIC TABLET PO SCH (07:56)
[2019-04-28 09:06] VITALS: BP 128/84
[2019-04-28 16:26] VITALS: BP 148/86
[2019-04-28] MEDS: ZOLPIDEM TARTRATE 10 MG TABLET PO PRN (21:58)
[2019-04-29] MEDS: MULTIVITAMINS WITH MINERALS, THERAPEUTIC TABLET PO SCH (08:05)
[2019-04-29] MEDS: NALTREXONE HCL 50 MG TABLET PO SCH (08:05)
[2019-04-29] MEDS: THIAMINE HCL 100 MG TABLET PO SCH ×2 (08:05→16:20)
[2019-04-29] MEDS: FOLIC ACID 1 MG TABLET PO SCH (08:05)
[2019-04-29] MEDS: LORazepam 2 MG TABLET PO PRN (08:08)
[2019-04-29] MEDS: PALIPERIDONE 1.5 MG ER TABLET PO PRN (08:09)
[2019-04-29] MEDS ORDERED: PALIPERIDONE PALMITATE 156 MG/ML SYRINGE IM ONE (09:00)
[2019-04-29 10:03] VITALS: BP 124/81
[2019-04-29 17:13] VITALS: BP 120/81
[2019-04-29] MEDS: ZOLPIDEM TARTRATE 10 MG TABLET PO PRN (20:20)
[2019-04-30] MEDS: NALTREXONE HCL 50 MG TABLET PO SCH (07:49)
[2019-04-30] MEDS: PALIPERIDONE 1.5 MG ER TABLET PO PRN ×2 (07:49→16:23)
[2019-04-30] MEDS: THIAMINE HCL 100 MG TABLET PO SCH ×2 (07:50→16:22)
[2019-04-30] MEDS: MULTIVITAMINS WITH MINERALS, THERAPEUTIC TABLET PO SCH (07:50)
[2019-04-30] MEDS: LORazepam 2 MG TABLET PO PRN ×2 (07:50→16:22)
[2019-04-30] MEDS: FOLIC ACID 1 MG TABLET PO SCH (07:50)
[2019-04-30 08:53] VITALS: BP 109/86
[2019-04-30 22:32] VITALS: BP 111/88
[2019-05-01] MEDS: NALTREXONE HCL 50 MG TABLET PO SCH (08:06)
[2019-05-01] MEDS: FOLIC ACID 1 MG TABLET PO SCH (08:06)
[2019-05-01] MEDS: MULTIVITAMINS WITH MINERALS, THERAPEUTIC TABLET PO SCH (08:06)
[2019-05-01] MEDS: THIAMINE HCL 100 MG TABLET PO SCH ×2 (08:06→17:07)
[2019-05-01 08:10] VITALS: BP 110/87
[2019-05-01] MEDS ORDERED: BENZTROPINE MESYLATE 1 MG TABLET PO SCH (09:00)
[2019-05-01 16:10] VITALS: BP 113/70
[2019-05-01] MEDS ORDERED: PALI117D IM ×2 (17:08→18:15)
[2019-05-01] MEDS ORDERED: BENZ1TAB10 PO (17:08)
[2019-05-01] MEDS ORDERED: NALT50TA PO (17:08)
[2019-05-01] MEDS ORDERED: DIVA500T52 PO (17:08)
[2019-05-01] MEDS ORDERED: DIVALPROEX SODIUM 500 MG ER TABLET PO SCH (21:00)
== END 2019-05-01 19:30 | disposition home or self-care (01) | DRG 750 ==
LOC: EMS 12:02 → 3EC 15:57
PROVIDERS: ADMIT Psychiatry & Neurology Psychiatry; ATTEND Psychiatry & Neurology Psychiatry
DX: F25.0 Schizoaffective disorder, bipolar type (principal); Z91.19 Patient's noncompliance with other medical treatment and regimen; D72.829 Elevated white blood cell count, unspecified; G43.909 Migraine, unspecified, not intractable, without status migrainosus; G47.00 Insomnia, unspecified; K59.00 Constipation, unspecified; M72.2 Plantar fascial fibromatosis; F19.10 Other psychoactive substance abuse, uncomplicated; Z79.899 Other long term (current) drug therapy
CPT/HCPCS: 80307; 84132; 87081; 96372; G0480; J1200; J1630; J2060

== ENCOUNTER 2022-05-01 09:30 | Inpatient (IN) | payer MEDICARE, MEDICAID ==
[~2022-05-01] VITALS: Ht 165.1 cm; Wt 63.6 kg
[~2022-05-01 09:30] MED LIST changes: +BENZ1TAB96 PO; +DIVA-80 PO; -DIVA500T52 PO; -OLAN10TA20 PO; +PALI117D IM
[2022-05-01] MEDS ORDERED: DIVA-80 PO (09:59)
[2022-05-01 11:46] LABS: COVID AG,FIA SOURCE NASAL SWAB
[2022-05-01] MEDS ORDERED: LORazepam 2 MG TABLET PO PRN (12:00)
[2022-05-01] MEDS ORDERED: HALOPERIDOL 5 MG TABLET PO PRN (12:00)
[2022-05-01 13:59] VITALS: BP 152/72
[2022-05-02] MEDS ORDERED: PETROLATUM,WHITE 28 GM JELLY TP PRN (10:00)
[2022-05-02] MEDS ORDERED: ALBUTEROL SULFATE HFA 90 MCG/PUFF 8 GM INHALER IH PRN (10:00)
[2022-05-02] MEDS ORDERED: MAGNESIUM HYDROXIDE SUSPENSION 30 ML UDCUP PO PRN (10:00)
[2022-05-02] MEDS ORDERED: ACETAMINOPHEN 325 MG TABLET PO PRN (10:00)
[2022-05-02] MEDS ORDERED: DOCUSATE SODIUM 100 MG CAPSULE PO PRN (10:00)
[2022-05-02] MEDS ORDERED: LOPERAMIDE HCL 2 MG CAPSULE PO PRN (10:00)
[2022-05-02] MEDS ORDERED: CloNIDine HCL 0.1 MG TABLET PO PRN (10:00)
[2022-05-02] MEDS ORDERED: NICOTINE 14 MG/24 HOUR PATCH TD PRN (10:00)
[2022-05-02] MEDS ORDERED: GuaiFENesin/D-METHORPHAN [SUGAR-FREE] 200-20MG/10 ML SYRUP UDCUP PO PRN (10:00)
[2022-05-02] MEDS ORDERED: IBUPROFEN 400 MG TABLET PO PRN (10:00)
[2022-05-02] MEDS ORDERED: ONDANSETRON HCL 4 MG TABLET PO PRN (10:00)
[2022-05-02] MEDS ORDERED: MAG HYDROX/AL HYDROX/SIMETH ES 30 ML SUSPENSION UDCUP PO PRN (10:00)
[2022-05-02 21:07] VITALS: BP 124/84
[2022-05-03] MEDS: OLANZapine 5 MG TABLET PO SCH ×2 (12:00→20:06)
[2022-05-04] MEDS: OLANZapine 5 MG TABLET PO SCH (07:52)
[2022-05-04] MEDS ORDERED: OLAN5TAB52 PO (10:04)
== END 2022-05-04 12:15 | disposition home or self-care (01) | DRG 885 ==
LOC: EMS 09:52 → 3EX 13:34 → 3EC 05-03 13:24
PROVIDERS: ADMIT Psychiatry & Neurology Child & Adolescent Psychiatry; ATTEND Psychiatry & Neurology Child & Adolescent Psychiatry
DX: F25.0 Schizoaffective disorder, bipolar type (principal); M72.2 Plantar fascial fibromatosis; F15.90 Other stimulant use, unspecified, uncomplicated; F41.9 Anxiety disorder, unspecified; Z20.822 Contact with and (suspected) exposure to COVID-19; R10.13 Epigastric pain; Z79.899 Other long term (current) drug therapy
CPT/HCPCS: 99285; G0378

== ENCOUNTER 2023-11-20 21:22 | Inpatient (IN) | payer MEDICAID, MEDICARE ==
[~2023-11-20] VITALS: Ht 165.1 cm; Wt 60.3 kg
[~2023-11-20 21:22] MED LIST changes: +BENZ1TAB84 PO; -BENZ1TAB96 PO; -DIVA-80 PO; +DIVA500T53 PO; -NALT50TA PO; +OLAN5TAB52 PO
[2023-11-20] MEDS ORDERED: ZOLPIDEM TARTRATE 10 MG TABLET PO PRN (22:45)
[2023-11-20] MEDS ORDERED: HALOPERIDOL 5 MG TABLET PO PRN (22:45)
[2023-11-20] MEDS: HALOPERIDOL LACTATE 5 MG/ML VIAL IM ONE (23:41)
[2023-11-20] MEDS: DiphenhydrAMINE HCL 50 MG/ML VIAL IM ONE (23:41)
[2023-11-20] MEDS: LORazepam 2 MG/ML VIAL IM ONE (23:41)
[2023-11-21 03:25] LABS: COVID AG,FIA SOURCE NASAL SWAB
[2023-11-21 03:32] LABS: SARS-COV2 (COVID) ANTIGEN,FIA Negative (Negative)
[2023-11-21 07:26] VITALS: BP 122/67; PULSE 77; RESP 16; TEMP 98.1; O2SAT 98
[2023-11-21 08:14] VITALS: BP 112/71; PULSE 75; RESP 17; TEMP 98.7; O2SAT 97
[2023-11-21] MEDS: DIVALPROEX SODIUM 500 MG DR TABLET PO SCH (09:20)
[2023-11-21] MEDS: BENZTROPINE MESYLATE 1 MG TABLET PO SCH (09:20)
[2023-11-21] MEDS: OLANZapine 5 MG TABLET PO SCH (09:20)
[2023-11-21] MEDS ORDERED: NICOTINE POLACRILEX 2 MG LOZENGE PO PRN (11:30)
[2023-11-21] MEDS ORDERED: GuaiFENesin/D-METHORPHAN [SUGAR-FREE] 200-20MG/10 ML SYRUP UDCUP PO PRN (16:00)
[2023-11-21] MEDS ORDERED: LOPERAMIDE HCL 2 MG CAPSULE PO PRN (16:00)
[2023-11-21] MEDS ORDERED: ALBUTEROL SULFATE HFA 90 MCG/PUFF 8 GM INHALER IH PRN (16:00)
[2023-11-21] MEDS ORDERED: NICOTINE 14 MG/24 HOUR PATCH TD PRN (16:00)
[2023-11-21] MEDS ORDERED: MAGNESIUM HYDROXIDE SUSPENSION 30 ML UDCUP PO PRN (16:00)
[2023-11-21] MEDS ORDERED: CloNIDine HCL 0.1 MG TABLET PO PRN (16:00)
[2023-11-21] MEDS ORDERED: DOCUSATE SODIUM 100 MG CAPSULE PO PRN (16:00)
[2023-11-21] MEDS ORDERED: ONDANSETRON HCL 4 MG TABLET PO PRN (16:00)
[2023-11-21] MEDS ORDERED: MAG HYDROX/ALUMINUM HYD/SIMETH ES 30 ML SUSPENSION UDCUP PO PRN (16:00)
[2023-11-21] MEDS ORDERED: PETROLATUM,WHITE 28 GM JELLY TP PRN (16:00)
[2023-11-21] MEDS ORDERED: ACETAMINOPHEN 325 MG TABLET PO PRN (16:00)
[2023-11-21 20:10] VITALS: BP 119/70; PULSE 79; RESP 18; TEMP 98.4
[2023-11-22] MEDS: IBUPROFEN 400 MG TABLET PO PRN (00:55)
[2023-11-22 08:45] VITALS: RESP 18
[2023-11-22 20:25] VITALS: BP 112/85; PULSE 105; TEMP 98.5
[2023-11-23 08:10] VITALS: RESP 18
[2023-11-24] MEDS: LORazepam 2 MG TABLET PO PRN (08:12)
[2023-11-24 08:26] VITALS: RESP 18
[2023-11-25 08:10] VITALS: RESP 16
[2023-11-26 08:40] VITALS: RESP 18
== END 2023-11-26 11:32 | disposition home or self-care (01) | DRG 885 ==
LOC: EMS 21:24 → B3A 11-21 03:01
PROVIDERS: ADMIT Psychiatry & Neurology Child & Adolescent Psychiatry; ATTEND Psychiatry & Neurology Child & Adolescent Psychiatry
PROC: GZHZZZZ Group Psychotherapy (ICD-10-PCS; principal; 2023-11-22)
PROC: GZ52ZZZ Individual Psychotherapy, Cognitive (ICD-10-PCS; 2023-11-22)
DX: F20.0 Paranoid schizophrenia (principal); G92.8 Other toxic encephalopathy; F10.10 Alcohol abuse, uncomplicated; Z20.822 Contact with and (suspected) exposure to COVID-19; F14.90 Cocaine use, unspecified, uncomplicated; F12.90 Cannabis use, unspecified, uncomplicated; F15.10 Other stimulant abuse, uncomplicated; F41.9 Anxiety disorder, unspecified; Z78.1 Physical restraint status; Z91.199 Patient's noncompliance with other medical treatment and regimen due to unspecified reason; Z79.899 Other long term (current) drug therapy
CPT/HCPCS: 80164; 99285; J1200; J1630; J2060